=== PATIENT | female | born 1980 | race African-American/Black ===

== ENCOUNTER 2016-03-08 08:52 | Emergency (ER) | payer OTHER ==
[~2016-03-08] VITALS: Ht 170.2 cm; Wt 104.9 kg
[~2016-03-08 08:52] MED LIST: BIRTH CONTROL; DEPO ESTRADIO5 MG/ML IM; ERGOCALCIF50000 UNIT PO; FERREX 150150 MG PO; FISH OIL SOFTG1 EACH PO; FLEXERIL10 MG PO; FLONASE16 G1 BOTH NARES; HYDROCODON-ACE1 EAC7 PO; IBUPROFEN800 MG PO; MEDROL DOSEPAK4 MG PO; MOTRIN IB200 MG PO; NAPROSYN-EC 37375 MG PO; NOHOMEMEDS; PERCOCET 5/31 TABLET PO; PRENATAL VITAM1 EAC1 PO; PRILOSEC20 MG PO; PROZAC10 MG PO; TORADOL10 MG PO; VENTOLIN HFA18 GM IH; WELLBUTRIN SR150 MG PO; ZOFRAN4 MG PO; ZYRTEC10 M2 PO
[2016-03-08 09:37] LABS: MCH 24.3 PG (29.0-34.0); MCHC 31.3 G/DL (30.0-36.0); MCV 77.5 FL (83-99); MEAN PLAT.VOLUME 11.4 uM^3 (9.5-12.4); PLATELET COUNT 188 K/uL (156-360); RBC DIS.WIDTH-CV 16.6 % (11.8-14.6); RBC DIS.WIDTH-SD 45.9 % (39-53); RED BLOOD COUNT 5.03 M/uL (3.80-5.20); WHITE BLOOD COUNT 3.6 K/uL (4.1-10.2)
[2016-03-08 09:41] LABS: ADD MIUA? NO; BILIRUBIN NEGATIVE; BLOOD NEGATIVE; COLOR YELLOW ((YELLOW)); GLUCOSE (STRIP) NEGATIVE; KETONES NEGATIVE; LEUKOCYTES NEGATIVE; NITRITE NEGATIVE; PROTEIN (STRIP) NEGATIVE; SPECIFIC GRAVITY 1.008 (1.000-1.030); UCUL ADDED? NO; UROBILINOGEN 0.2 MG/DL (0.2-1.0)
[2016-03-08 09:48] LABS: CHLORIDE 103 mEq/L (99-109); SODIUM 137 mEq/L (136-147)
[2016-03-08 09:50] LABS: GLUCOSE 100 mg/dL (70-99)
[2016-03-08 09:51] LABS: ANION GAP 11 MEQ/L (2-14)
[2016-03-08 09:52] LABS: TOTAL BILIRUBIN 0.4 mg/dL (0.0-1.0)
[2016-03-08 09:53] LABS: ALKALINE PHOSPHATASE 57 IU/L (3-129)
[2016-03-08 09:54] LABS: GFR ESTIMATE (CALCULATED) > 59 mL/min/
[2016-03-08 09:55] LABS: UREA NITROGEN (BUN) 13 mg/dL (9-23)
[2016-03-08 10:03] LABS: QUANTITATIVE HCG < 4.0 MIU/ML
[2016-03-08] MEDS ORDERED: PEN-VEE K,VEET500 MG PO (10:49)
[2016-03-08 10:59] VITALS: BP 123/90
== END 2016-03-08 11:13 | disposition home or self-care (01) ==
LOC: EME 08:52
PROVIDERS: Nurse Practitioner Family
DX: M79.604 Pain in right leg (principal); K04.7 Periapical abscess without sinus
CPT/HCPCS: 80053; 81003; 84702; 85027; 93971; 99281; 99284

== ENCOUNTER 2016-05-04 12:22 | Emergency (ER) | payer OTHER ==
[~2016-05-04] VITALS: Ht 170.2 cm; Wt 104.0 kg
[~2016-05-04 12:22] MED LIST changes: +PEN-VEE K,VEET500 MG PO
[2016-05-04 15:09] VITALS: BP 152/94
== END 2016-05-04 15:10 | disposition home or self-care (01) ==
LOC: EME 12:22
DX: S09.90XA Unspecified injury of head, initial encounter (principal); Y04.2XXA Assault by strike against or bumped into by another person, initial encounter
CPT/HCPCS: 70450; 99281; 99283

== ENCOUNTER 2016-10-04 00:56 | Emergency (ER) | payer OTHER ==
[~2016-10-04] VITALS: Ht 170.2 cm; Wt 96.8 kg
[2016-10-04] MEDS ORDERED: PREDNISONE20 MG PO (02:00)
[2016-10-04] MEDS ORDERED: ROBITUSSIN AC,T10 ML PO (02:00)
[2016-10-04] MEDS ORDERED: AMOXICILLIN875 MG PO (02:00)
[2016-10-04 02:07] VITALS: BP 105/71
== END 2016-10-04 02:19 | disposition home or self-care (01) ==
LOC: EME 00:56
DX: J40 Bronchitis, not specified as acute or chronic (principal); H66.91 Otitis media, unspecified, right ear; J02.9 Acute pharyngitis, unspecified
CPT/HCPCS: 71020; 99281; 99284

== ENCOUNTER 2016-11-02 17:42 | Emergency (ER) | payer OTHER ==
[~2016-11-02] VITALS: Ht 170.2 cm; Wt 99.0 kg
[~2016-11-02 17:42] MED LIST changes: +AMOXICILLIN875 MG PO; +PREDNISONE20 MG PO; +ROBITUSSIN AC,T10 ML PO
[2016-11-02 18:45] LABS: HEMATOCRIT 40.6 % (36.0-46.0); MCH 24.9 PG (29.0-34.0); MCV 80.2 FL (83-99); MEAN PLAT.VOLUME 11.4 uM^3 (9.5-12.4); PLATELET COUNT 225 K/uL (156-360); RBC DIS.WIDTH-SD 46.6 % (39-53); RED BLOOD COUNT 5.06 M/uL (3.80-5.20); WHITE BLOOD COUNT 4.7 K/uL (4.1-10.2)
[2016-11-02 18:58] LABS: CHLORIDE 102 mEq/L (99-109); POTASSIUM 4.5 mEq/L (3.7-5.4); SODIUM 138 mEq/L (136-147)
[2016-11-02 19:00] LABS: GLUCOSE 93 mg/dL (70-99)
[2016-11-02 19:01] LABS: ANION GAP 9 MEQ/L (2-14)
[2016-11-02 19:02] LABS: TOTAL BILIRUBIN 0.4 mg/dL (0.0-1.0)
[2016-11-02 19:04] LABS: ALKALINE PHOSPHATASE 60 IU/L (3-129); GFR ESTIMATE (CALCULATED) > 59 mL/min/
[2016-11-02 19:05] LABS: UREA NITROGEN (BUN) 14 mg/dL (9-23)
[2016-11-02 19:14] LABS: QUANTITATIVE HCG < 4.0 MIU/ML
[2016-11-02 19:57] LABS: ADD MIUA? YES; BILIRUBIN NEGATIVE; BLOOD NEGATIVE; COLOR YELLOW ((YELLOW)); GLUCOSE (STRIP) NEGATIVE; KETONES NEGATIVE; LEUKOCYTES NEGATIVE; NITRITE NEGATIVE; PROTEIN (STRIP) NEGATIVE; SPECIFIC GRAVITY 1.024 (1.000-1.030); UROBILINOGEN 0.2 MG/DL (0.2-1.0)
[2016-11-02 20:02] LABS: BACTERIA NONE SEEN /HPF; EPITHELIAL CELLS RARE /HPF; MUCUS TRACE /LPF; RED BLOOD CELLS 0-5 /HPF (0-5); UCUL ADDED? NO; WHITE BLOOD CELLS 0-5 /HPF (0-5)
[2016-11-02 20:20] VITALS: BP 129/89
== END 2016-11-02 20:25 | disposition home or self-care (01) ==
LOC: EME 17:42
DX: R42 Dizziness and giddiness (principal); R11.0 Nausea; R07.9 Chest pain, unspecified; Z90.49 Acquired absence of other specified parts of digestive tract
CPT/HCPCS: 71020; 80053; 81003; 84702; 85027; 93005; 99281; 99284

== ENCOUNTER 2016-12-02 15:42 | Emergency (ER) | payer OTHER ==
[~2016-12-02] VITALS: Ht 170.2 cm; Wt 99.1 kg
[2016-12-02 17:44] LABS: D-DIMER ELISA < 150.00 ng/mLDDU (<230)
[2016-12-02 17:49] LABS: CHLORIDE 105 mEq/L (99-109); HEMATOCRIT 39.5 % (36.0-46.0); MCH 26.4 PG (29.0-34.0); MCHC 32.2 G/DL (30.0-36.0); MCV 82.1 FL (83-99); MEAN PLAT.VOLUME 11.6 uM^3 (9.5-12.4); PLATELET COUNT 200 K/uL (156-360); POTASSIUM 4.5 mEq/L (3.7-5.4); RBC DIS.WIDTH-CV 15.8 % (11.8-14.6); RBC DIS.WIDTH-SD 47.5 % (39-53); RED BLOOD COUNT 4.81 M/uL (3.80-5.20); SODIUM 140 mEq/L (136-147); WHITE BLOOD COUNT 4.9 K/uL (4.1-10.2)
[2016-12-02 17:50] LABS: GLUCOSE 93 mg/dL (70-99)
[2016-12-02 17:52] LABS: ANION GAP 8 MEQ/L (2-14)
[2016-12-02 17:54] LABS: GFR ESTIMATE (CALCULATED) > 59 mL/min/
[2016-12-02 17:55] LABS: UREA NITROGEN (BUN) 8 mg/dL (9-23)
[2016-12-02 18:05] LABS: QUANTITATIVE HCG < 4.0 MIU/ML
[2016-12-02] MEDS ORDERED: PREDNISONE20 MG PO (18:42)
[2016-12-02] MEDS ORDERED: ULTRAM50 MG PO (18:42)
[2016-12-02 18:49] VITALS: BP 132/78
== END 2016-12-02 18:50 | disposition home or self-care (01) ==
LOC: EME 15:42
PROVIDERS: Physician Assistant
DX: M79.605 Pain in left leg (principal); J45.909 Unspecified asthma, uncomplicated; F41.9 Anxiety disorder, unspecified; E55.9 Vitamin D deficiency, unspecified; E53.8 Deficiency of other specified B group vitamins
CPT/HCPCS: 80048; 84702; 85027; 85379; 99281; 99284

== ENCOUNTER 2016-12-06 18:03 | Emergency (ER) | payer OTHER ==
[~2016-12-06] VITALS: Ht 170.2 cm; Wt 98.8 kg
[~2016-12-06 18:03] MED LIST changes: +ULTRAM50 MG PO
[2016-12-06] MEDS ORDERED: ATARAX,VISTARIL25 MG PO (19:28)
[2016-12-06 19:51] VITALS: BP 152/88
== END 2016-12-06 20:39 | disposition home or self-care (01) ==
LOC: EME 18:03
DX: F43.23 Adjustment disorder with mixed anxiety and depressed mood (principal); J45.909 Unspecified asthma, uncomplicated; E55.9 Vitamin D deficiency, unspecified; E53.8 Deficiency of other specified B group vitamins
CPT/HCPCS: 90839; 99281; 99284; Q0177

== ENCOUNTER 2017-01-23 12:13 | Emergency (ER) | payer OTHER ==
[~2017-01-23] VITALS: Ht 170.2 cm; Wt 102.2 kg
[~2017-01-23 12:13] MED LIST changes: +ATARAX,VISTARIL25 MG PO
[2017-01-23] MEDS ORDERED: TRAMADOL HCL50 MG PO (14:23)
[2017-01-23] MEDS ORDERED: SKELAXIN800 MG PO (14:23)
[2017-01-23] MEDS ORDERED: PREDNISONE50 MG PO (14:23)
[2017-01-23 14:41] VITALS: BP 128/61
== END 2017-01-23 14:49 | disposition home or self-care (01) ==
LOC: EME 12:13
DX: M54.5 Low back pain (principal); I10 Essential (primary) hypertension; M19.90 Unspecified osteoarthritis, unspecified site; Z79.52 Long term (current) use of systemic steroids; J30.9 Allergic rhinitis, unspecified; Z88.8 Allergy status to other drugs, medicaments and biological substances
CPT/HCPCS: 99281; 99282

== ENCOUNTER 2017-02-07 16:28 | Emergency (ER) | payer OTHER ==
[~2017-02-07 16:28] MED LIST changes: +PREDNISONE50 MG PO; +SKELAXIN800 MG PO; +TRAMADOL HCL50 MG PO
[2017-02-07 18:46] LABS: ADD MIUA? NO; BILIRUBIN NEGATIVE; BLOOD NEGATIVE; COLOR STRAW ((YELLOW)); GLUCOSE (STRIP) NEGATIVE; KETONES NEGATIVE; LEUKOCYTES NEGATIVE; NITRITE NEGATIVE; PROTEIN (STRIP) NEGATIVE; SPECIFIC GRAVITY 1.006 (1.000-1.030); UCUL ADDED? NO; UROBILINOGEN 0.2 MG/DL (0.2-1.0)
[2017-02-07 18:48] LABS: INTERNAL CONTROL VALID? YES
[2017-02-07] MEDS ORDERED: VITAMIN D2000 UNI1 PO (19:47)
[2017-02-07 19:48] VITALS: BP 130/66
== END 2017-02-07 19:48 | disposition home or self-care (01) ==
LOC: EME 16:28
PROVIDERS: Physician Assistant
DX: J02.9 Acute pharyngitis, unspecified (principal); R50.9 Fever, unspecified; H92.03 Otalgia, bilateral; R35.0 Frequency of micturition; R11.0 Nausea; R10.9 Unspecified abdominal pain; R00.0 Tachycardia, unspecified
CPT/HCPCS: 81003; 84703; 87502; 87651 90; 99281; 99284

== ENCOUNTER 2017-05-03 00:41 | Emergency (ER) | payer OTHER ==
[~2017-05-03] VITALS: Ht 170.2 cm; Wt 106.8 kg
[~2017-05-03 00:41] MED LIST changes: +VITAMIN D2000 UNI1 PO
[2017-05-03 01:54] LABS: BASOPHIL (%) 0.7 % (0-1); EOSINOPHIL (%) 5.4 % (0-5); EOSINOPHIL COUNT 0.2 K/uL (0-0.3); HEMATOCRIT 37.4 % (36.0-46.0); HEMOGLOBIN 11.8 G/DL (11.9-15.5); IMMATURE GRANULOCYTE (%) 0.2 % (0.0-0.7); LYMPHOCYTE (%) 43.3 % (15-42); LYMPHOCYTE COUNT 1.9 K/uL (1.0-2.8); MCH 25.1 PG (29.0-34.0); MCHC 31.6 G/DL (30.0-36.0); MCV 79.6 FL (83-99); MONOCYTE (%) 8.2 % (3-12); MONOCYTE COUNT 0.4 K/uL (0-0.8); NEUTROPHIL (%) 42.2 % (45-76); NEUTROPHIL COUNT 1.9 K/uL (1.8-6.4); PLATELET COUNT 207 K/uL (156-360); RBC DIS.WIDTH-CV 15.2 % (11.8-14.6); RBC DIS.WIDTH-SD 44.1 % (39-53); WHITE BLOOD COUNT 4.4 K/uL (4.1-10.2)
[2017-05-03 03:03] LABS: CHLORIDE 103 mEq/L (99-109); POTASSIUM 3.9 mEq/L (3.7-5.4); SODIUM 138 mEq/L (136-147)
[2017-05-03 03:06] LABS: GLUCOSE 105 mg/dL (70-99); TOTAL PROTEIN 6.8 g/dL (6.4-8.3)
[2017-05-03 03:08] LABS: TOTAL BILIRUBIN 0.2 mg/dL (0.0-1.0)
[2017-05-03 03:09] LABS: ALKALINE PHOSPHATASE 60 IU/L (3-129); CREATININE 0.9 mg/dL (0.6-1.3); GFR ESTIMATE (CALCULATED) > 59 mL/min/
[2017-05-03 03:10] LABS: UREA NITROGEN (BUN) 10 mg/dL (9-23)
[2017-05-03 03:11] LABS: AST (GOT) 17 IU/L (2-34)
[2017-05-03 03:12] LABS: ALT (GPT) 15 IU/L (3-49)
[2017-05-03 03:15] LABS: TROP-I INTERPRETATION NEGATIVE; TROPONIN-I < 0.01 ng/mL (0.0-0.30)
[2017-05-03] MEDS ORDERED: PROVENTIL HFA6.7 GM IH (04:56)
[2017-05-03 05:09] VITALS: BP 141/77
== END 2017-05-03 05:10 | disposition home or self-care (01) ==
LOC: EME 00:41
PROVIDERS: Emergency Medicine
DX: J04.0 Acute laryngitis (principal); J45.909 Unspecified asthma, uncomplicated; E55.9 Vitamin D deficiency, unspecified; F41.9 Anxiety disorder, unspecified; Z90.49 Acquired absence of other specified parts of digestive tract; Z88.8 Allergy status to other drugs, medicaments and biological substances
CPT/HCPCS: 70491; 71046; 80053; 84484; 85025; 93005; 94640; 99281; 99284; J7030; J8540